=== PATIENT | male | born 2000 | race Caucasian/White ===

== ENCOUNTER 2022-11-25 22:18 | Emergency (ER) | payer OTHER ==
[~2022-11-25] VITALS: Ht 188 cm; Wt 96.2 kg
[2022-11-25 22:22] VITALS: BP 134/69; PULSE 84; RESP 16; TEMP 98.3; O2SAT 99
[2022-11-26 00:08] VITALS: BP 133/70; PULSE 71; RESP 17; TEMP 98.3; O2SAT 96
== END 2022-11-26 00:08 | disposition home or self-care (01) ==
LOC: MED 22:18
DX: R00.2 Palpitations (principal); F41.9 Anxiety disorder, unspecified
CPT/HCPCS: 93005; 99283